=== PATIENT | female | born 1990 | race Caucasian/White ===

== ENCOUNTER → 2020-03-28 14:21 | Outpatient (BNVA) | payer OTHER, SELFPAY | PROVIDERS: PCP Internal Medicine; Visit Provider Advanced Practice Midwife | DX: Z76.89 Persons encountering health services in other specified circumstances (principal) ==

== ENCOUNTER → 2020-04-30 10:12 | Outpatient (BNVA) | payer OTHER, SELFPAY | PROVIDERS: Visit Provider Advanced Practice Midwife | DX: O99.322 Drug use complicating pregnancy, second trimester (principal); F11.20 Opioid dependence, uncomplicated; F12.90 Cannabis use, unspecified, uncomplicated; O99.332 Smoking (tobacco) complicating pregnancy, second trimester; F17.210 Nicotine dependence, cigarettes, uncomplicated; O99.342 Other mental disorders complicating pregnancy, second trimester; F41.8 Other specified anxiety disorders; F43.10 Post-traumatic stress disorder, unspecified; Z3A.26 26 weeks gestation of pregnancy; Z79.899 Other long term (current) drug therapy; Z23 Encounter for immunization | CPT/HCPCS: 90686 ==

== ENCOUNTER → 2020-06-05 15:55 | Outpatient (BNVA) | payer OTHER, SELFPAY | PROVIDERS: Visit Provider Advanced Practice Midwife | DX: O99.320 Drug use complicating pregnancy, unspecified trimester (principal); O26.899 Other specified pregnancy related conditions, unspecified trimester; F17.210 Nicotine dependence, cigarettes, uncomplicated; F11.20 Opioid dependence, uncomplicated; Z79.899 Other long term (current) drug therapy | CPT/HCPCS: 81003; 90471; 90715; 99212 ==

== ENCOUNTER 2020-06-20 14:07 | Outpatient (REF) | payer OTHER, SELFPAY ==
--- NOTE | 2020-06-20 14:13 | US_ITS ---
EXAMINATION: US OBSTETRICAL FOLLOW UP WITH BIOPHYSICAL PROFILE CLINICAL INFORMATION: Opioid dependence. COMPARISON: 03/02/2020 TECHNIQUE: Real time transabdominal imaging with color and M-mode Doppler. POSITION: Cephalic PLACENTA: Anterior, grade 2 AMNIOTIC FLUID INDEX: 16.99. cm MEASUREMENTS: biometric measurements are as follows: Biparietal Diameter: 8.46 cm (34 weeks and 1 day) Occipital Frontal Diameter: 12.12 cm. Head Circumference: 32.83 cm (37 weeks and 3 days) Abdominal Circumference: 32.09 cm (36 weeks and 1 day) Femur Length: 6.76 cm (34 weeks and 6 days) The standard deviation for the above measurements is +/- 3 weeks. ESTIMATED WEIGHT: The EFW is 2682 grams/5 lbs 15 oz. This is at the 84 percentile. anatomy: There is visualization of both kidneys, bladder, stomach and a 4-chamber heart. BIOPHYSICAL PROFILE: Biophysical profile is performed over 30 minutes with assessment of breathing, gross body movement, tone, and qualitative amniotic fluid volume. Each matrix is scored 0 or 2, depending if the metric is present. Maximum total score possible is 8. Motion: 2 Tone: 2 Breathin Amniotic Fluid: 2 Total score: 8 HR: 137 bpm US/US OB follow up IMPRESSION: There is a single live intrauterine fetus with an ultrasound gestational age of 35 weeks and 5 days. By LMP, the clinical gestational age is 34 weeks and 0 days. Based on today's ultrasound the ALPHONSE is 07/20/2020. BPP Score: 8 out of 8
== END 2020-06-20 14:08 | disposition home or self-care (01) ==
LOC: HO.US 14:07
PROVIDERS: Visit Provider Advanced Practice Midwife
DX: O99.323 Drug use complicating pregnancy, third trimester (principal); F11.20 Opioid dependence, uncomplicated; Z3A.35 35 weeks gestation of pregnancy; O99.333 Smoking (tobacco) complicating pregnancy, third trimester
CPT/HCPCS: 76816

== ENCOUNTER → 2020-06-22 15:41 | Outpatient (BNVA) | payer OTHER, SELFPAY | PROVIDERS: Visit Provider Advanced Practice Midwife | DX: O09.899 Supervision of other high risk pregnancies, unspecified trimester (principal) | CPT/HCPCS: 81003; 99212 ==

== ENCOUNTER 2021-03-09 16:49 | Emergency (ER) | payer OTHER, SELFPAY ==
--- NOTE | 2021-03-09 | ECG_ITS ---
Test Reason : SOB Blood Pressure : / mmHG Vent. Rate : 128 BPM Atrial Rate : 128 BPM P-R Int : 104 ms QRS Dur : 084 ms QT Int : 408 ms P-R-T Axes : 014 017 050 degrees QTc Int : 595 ms Sinus tachycardia with short VT Nonspecific T wave abnormality Abnormal ECG No previous ECGs available Referred By: Generic ED Physician Electronically Signed By:LEIGHTON HUGHES
[2021-03-09 17:05] VITALS: BP 174/98; PULSE 143; RESP 18; TEMP 37.2; O2SAT 98; BMI 31.7
[2021-03-09 17:44] LABS: COVID-19 Test Negative (Negative); IDNOW Serial# 9DD0AD1C
--- NOTE | 2021-03-09 19:20 | PC.NURSE ---
THis RN spoke with patient who was nodding off while in WR. Pt was arousable to voice and denies drug use. Skin pwd.
== END 2021-03-09 19:40 | disposition left against medical advice (07) ==
PROVIDERS: Emergency Provider Emergency Medicine
DX: R06.02 Shortness of breath (principal); Z20.822 Contact with and (suspected) exposure to COVID-19
CPT/HCPCS: 36415; 87635; 93005; 99282; 99283

== ENCOUNTER 2021-12-06 15:51 | Emergency (ER) | payer OTHER, SELFPAY ==
[2021-12-06 15:56] VITALS: BP 152/83; PULSE 68; RESP 15; TEMP 36.6; O2SAT 99; BMI 26.6
[2021-12-06 16:50] LABS: MANUAL DIFF FLAG NO
[2021-12-06 16:53] LABS: Appearance Urine CLEAR; Color Urine YELLOW; Glucose Urine UA NEG (NEG); Leukocyte Esterase Urine 2+ (NEG); Nitrite Urine POS (NEG); Specific Gravity - Urine 1.025 (1.005-1.025); UACC Culture Trigger YES; UPreg QC Valid YES; Urine Blood NEG (NEG); Urine Ketones 5 MG/DL (NEG); Urine Pregnancy NEGATIVE (NEGATIVE); Urine Protein NEG (NEG-TRACE)
[2021-12-06 17:01] LABS: Basophils Percent Auto 0.4 % (0-2); Eosinophils Absolute Auto 0.1 X10*3/uL (0.0-0.4); Eosinophils Percent Auto 1.9 % (0-4); Hematocrit 43.8 % (37.0-47.0); Hemoglobin 14.1 g/dl (12.0-16.0); Imm Gran Abs Auto 0.01 X10*3/uL (0.00-0.03); Imm Gran Pct Auto 0.1 % (0.0-0.4); Lymphocytes Absolute Auto 2.5 X10*3/uL (1.2-4.9); Lymphocytes Percent Auto 36.6 % (20-40); Mean Corpuscular HGB Conc 32.2 g/dl (31.0-35.0); Mean Corpuscular Hemoglobin 29.4 pg (27.0-33.0); Mean Corpuscular Volume 91.4 fL (80.0-98.0); Monocytes Absolute Auto 0.5 X10*3/uL (0.1-1.2); Monocytes Percent Auto 6.6 % (2-11); Neutrophils Absolute Auto 3.7 x10*3/uL (2.0-8.3); Neutrophils Percent Auto 54.4 % (45-73); Platelet Count 227 X10*3/uL (160-400); Red Blood Count 4.79 X10*6/uL (4.20-5.50); Red Cell Distribution Width 12.5 % (11.0-16.0); White Blood Count 6.9 X10*3/uL (4.8-10.8)
[2021-12-06 17:06] LABS: Anion Gap 10 (12-20); Blood Urea Nitrogen 10 mg/dL (9-16); Calcium 9.7 mg/dL (8.4-10.2); Carbon Dioxide 31 mmol/L (22-29); Chloride 103 mmol/L (96-108); Creatinine Clr Calc Pharmacy 88.1; Estimated Glomerular Filt Rate > 60; Glucose Random 110 mg/dL (60-115); Potassium 5.2 mmol/L (3.3-5.1); Sodium 139 mmol/L (135-145)
[2021-12-06 17:22] LABS: Bacteria Urine 3+ /LPF; Squamous Epithelial Cell Urine 1+ /LPF
--- NOTE | 2021-12-06 17:22 | ED_ITS ---
HPI - Female Genitourinary General Chief complaint: Urogenital-Female Stated complaint: UTI symptoms/back pain Time Seen by Provider: 12/06/21 17:36 Source: patient Mode of arrival: ambulatory Limitations: no limitations History of Present Illness HPI Narrative: 31-year-old female presents with 5 days of urinary symptoms, frequency, urgency, with lower back pain. She does not report any fevers or chills, or any hematuria. Does report getting recurrent UTIs, has not had 1 in several months. She reports no risk of sexually transmitted infections at this time. Does not report any vaginal discharge or pain. MD elicited complaint: UTI Pertinent past history: recurrent UTIs Onset (ago): day(s) (5) Location of symptoms: urethra Severity: moderate Female Urogenital Radiation: Non-Radiating Severity scale (1-10): 6 Quality of pain: burning Consistency: intermittent Vaginal discharge: none Vaginal bleeding: none Urinary symptoms: Dysuria, Urgency, Frequency and Flank Pain Exacerbating factors: urination Relieving factors: none Associated symptoms: denies other symptoms Treatment prior to arrival: none Sexual activity: No Patient : No Related Data Home Medications Medication Instructions Recorded Confirmed clonazepam 1 mg tablet 1 mg PO TID PRN 03/29/20 methadone 10 mg/mL oral concentrate 10 mg PO DAILY 03/29/20 Previous Rx's Medication Instructions Recorded clindamycin HCl 150 mg capsule 450 mg PO TID 7 days #63 caps 01/14/21 ondansetron 4 mg disintegrating 4 mg PO Q6H PRN nausea and 01/14/21 tablet vomiting #20 tabs Allergies Allergy/AdvReac Type Severity Reaction Status Date / Time amoxicillin [Amoxicillin] Allergy Mild NAUSEA & Verified 06/22/20 15:55 VOMITING, anaphylaxis ibuprofen [From Motrin] Allergy Mild SHORTNESS Verified 06/22/20 15:55 OF BREATH naproxen [From NAPROSYN] Allergy Unknown HIVES, Verified 06/22/20 15:55 shortness of breath penicillin V Allergy Unknown anaphylaxis Verified 06/22/20 15:55 Penicillins [PCN] Allergy Unknown SHORTNESS Verified 06/22/20 15:55 OF BREATH/N/V tramadol [TRAMADOL] Allergy Unknown SHORTNESS Verified 06/22/20 15:55 OF BREATH Review of Systems Review of Systems: Constitutional: No Fever, No Chills ENT/Mouth: No Ear Pain, No Hoarseness, No sore throat Eyes: No Eye Pain, No Swelling, No Redness, No Foreign Body Cardiovascular: No Chest Pain, No SOB Respiratory: No Cough, No Dyspnea Gastrointestinal: No Nausea, No Vomiting, No Diarrhea, No abdominal Pain Genitourinary: Positive Dysuria, No Hematuria Musculoskeletal: No joint pain, No Myalgias, No Joint Swelling Skin: No Skin lacerations, No rash Neuro: No Weakness, No Numbness, No Paresthesias, No Loss of Consciousness, No Dizziness, No Headache Psych: No Anxiety/Panic, No Depression Heme/Lymph: no easy bruising, no Lymphadenopathy Endocrine: No Polyuria, No Polydipsia Yes all other systems are reviewed and are negative [facility] Past Medical History Attestation statement: The following information was validated with the patient. Source: old records reviewed Medical History Depression PTSD (post-traumatic stress disorder) Surgical History No history of previous surgery Family History Family History Maternal Grandfather HTN (hypertension) Mother Anxiety Father Anxiety Social History Social History Alcohol intake: never Substance Use Type: Marijuana Advance Directives: No Advance Directives Information Provided: No Patient : No Sexual orientation: Straight/Heterosexual Gender identity: Female Physical Exam Vital Signs: Vital Signs: Last Vital Signs Temp 98 F 12/06/21 15:56 Pulse 68 12/06/21 15:56 Resp 15 12/06/21 15:56 BP 152/83 H 12/06/21 15:56 Pulse Ox 99 12/06/21 15:56 O2 Del Method 12/06/21 15:56 BMI result Body Mass Index 26.6 Appearance: Alert. Oriented X3. No acute distress. Eyes: Pupils equal, round and reactive to light. ENT: Pharynx normal. Neck: Normal inspection. Neck supple. CVS: Normal heart rate and rhythm. Pulses normal. Respiratory: No respiratory distress. Breath sounds normal. Abdomen: Soft and nontender. No CVA tenderness. Skin: Skin warm and dry. Normal skin color. Normal skin turgor. Extremities: No lower extremity edema. Gait well-balanced well coordinated. Neuro: No motor deficit. No sensory deficit. Cranial nerves 2-12 intact Course Course Course Narrative: 31-year-old female presents with 5 days of urinary symptoms including dysuria, urgency, and flank pain. Patient denies risk for sexually transmitted infections at this time, denies vaginal pain and discharge. Denied fevers, chills, nausea and vomiting or abdominal distention. She does get recurrent UTIs has not had 1 in a few months. Urinalysis completed with labs while patient was in the emergency department waiting room. Labs unremarkable, potassium is 5.2 however patient is able to eat and drink and I feel that this will really resolved with p.o. fluids. Urinalysis indicates UTI. Will treat with Macrobid. Physical exam is unremarkable. Patient is afebrile, appears nontoxic, even unlabored respirations. I did discuss plan of care with patient, she agrees with Macrobid and Pyridium. As well as increased p.o. intake. Patient verbalized understanding of and agrees to plan of care to discharge home. Verbalized understanding of signs and symptoms indicating need for emergent intervention MDM - Female Genitourinary Differential Diagnosis Differential diagnosis: Likely urinary tract infection and cystitis Medical Records Attestation: I reviewed the patient's medical records. Lab Data Attestation: I reviewed the patient's lab results. Result diagrams: 12/06/21 16:45 12/06/21 16:45 Labs: Lab Results 12/06/21 12/06/21 12/06/21 Range/Units 16:45 16:45 16:45 WBC 6.9 (4.8-10.8) X10*3/uL RBC 4.79 (4.20-5.50) X10*6/uL Hgb 14.1 (12.0-16.0) g/dl Hct 43.8 (37.0-47.0) % MCV 91.4 (80.0-98.0) fL MCH 29.4 (27.0-33.0) pg MCHC 32.2 (31.0-35.0) g/dl RDW 12.5 (11.0-16.0) % Plt Count 227 (160-400) X10*3/uL MPV 10.0 (9.4-12.3) fL Immature Gran % (Auto) 0.1 (0.0-0.4) % Neut % (Auto) 54.4 (45-73) % Lymph % (Auto) 36.6 (20-40) % [place] % (Auto) 6.6 (2-11) % Eos % (Auto) 1.9 (0-4) % Baso % (Auto) 0.4 (0-2) % Lymph # (Auto) 2.5 (1.2-4.9) X10*3/uL [place] # (Auto) 0.5 (0.1-1.2) X10*3/uL Eos # (Auto) 0.1 (0.0-0.4) X10*3/uL Baso # (Auto) 0.0 (0.0-0.2) X10*3/uL Abs Immat Gran (auto) 0.01 (0.00-0.03) X10*3/uL Absolute Neuts (auto) 3.7 (2.0-8.3) x10*3/uL Absolute Nucleated RBC 0.000 (0.0-0.012) X10*3/uL Nucleated RBC % (auto) 0.0 (0.0-0.2) /100WBC Sodium 139 (135-145) mmol/L Potassium 5.2 H (3.3-5.1) mmol/L Chloride 103 (96-108) mmol/L Carbon Dioxide 31 H (22-29) mmol/L Anion Gap 10 L (12-20) BUN 10 (9-16) mg/dL Creatinine 0.89 (0.5-1.4) mg/dL Estim Creat Clear Calc 88.1 Estimated GFR > 60 Random Glucose 110 (60-115) mg/dL Calcium 9.7 (8.4-10.2) mg/dL Urine Color YELLOW Urine Appearance CLEAR Urine pH 6.0 (5.0-8.0) Ur Specific [place] 1.025 (1.005-1.025) Urine Protein NEG (NEG-TRACE) MG/DL Urine Glucose (UA) NEG (NEG) MG/DL Urine Ketones 5 (NEG) MG/DL Urine Blood NEG (NEG) Urine Nitrite POS H (NEG) Ur Leukocyte Esterase 2+ H (NEG) Urine RBC 1-4 (0) /HPF Urine WBC 15-29 H (0-4) /HPF Ur Squamous Epith Cells 1+ /LPF Urine Bacteria 3+ /LPF Urine Test (NEGATIVE) 12/06/21 Range/Units 16:45 WBC (4.8-10.8) X10*3/uL RBC (4.20-5.50) X10*6/uL Hgb (12.0-16.0) g/dl Hct (37.0-47.0) % MCV (80.0-98.0) fL MCH (27.0-33.0) pg MCHC (31.0-35.0) g/dl RDW (11.0-16.0) % Plt Count (160-400) X10*3/uL MPV (9.4-12.3) fL Immature Gran % (Auto) (0.0-0.4) % Neut % (Auto) (45-73) % Lymph % (Auto) (20-40) % [place] % (Auto) (2-11) % Eos % (Auto) (0-4) % Baso % (Auto) (0-2) % Lymph # (Auto) (1.2-4.9) X10*3/uL [place] # (Auto) (0.1-1.2) X10*3/uL Eos # (Auto) (0.0-0.4) X10*3/uL Baso # (Auto) (0.0-0.2) X10*3/uL Abs Immat Gran (auto) (0.00-0.03) X10*3/uL Absolute Neuts (auto) (2.0-8.3) x10*3/uL Absolute Nucleated RBC (0.0-0.012) X10*3/uL Nucleated RBC % (auto) (0.0-0.2) /100WBC Sodium (135-145) mmol/L Potassium (3.3-5.1) mmol/L Chloride (96-108) mmol/L Carbon Dioxide (22-29) mmol/L Anion Gap (12-20) BUN (9-16) mg/dL Creatinine (0.5-1.4) mg/dL Estim Creat Clear Calc Estimated GFR Random Glucose (60-115) mg/dL Calcium (8.4-10.2) mg/dL Urine Color Urine Appearance Urine pH (5.0-8.0) Ur Specific [place] (1.005-1.025) Urine Protein (NEG-TRACE) MG/DL Urine Glucose (UA) (NEG) MG/DL Urine Ketones (NEG) MG/DL Urine Blood (NEG) Urine Nitrite (NEG) Ur Leukocyte Esterase (NEG) Urine RBC (0) /HPF Urine WBC (0-4) /HPF Ur Squamous Epith Cells /LPF Urine Bacteria /LPF Urine Test NEGATIVE (NEGATIVE) Discharge Plan Discharge Clinical Impression: Urinary tract infection, Cystitis Patient Disposition: Home, Self-Care Instructions: Urinary Tract Infection in Women (ED) Additional Instructions: You were evaluated for urinary symptoms. Urinalysis is positive for UTI. Please take Macrobid 100 mg every 12 hours for the next 7 days. Use Pyridium every 8 hours as needed for bladder spasms and urinary symptoms. This medication will turn your urine bright orange. This is a normal side effect of this medication. Drink plenty of fluids. Thank you for choosing this emergency department for evaluation. Please follow-up with primary care physician as needed. Return to the emergency department for any new, concerning, or worsening symptoms. Prescriptions: No Action clindamycin HCl 150 mg capsule 450 mg PO TID 7 Days Qty: 63 0RF ondansetron 4 mg tablet,disintegrating 4 mg PO Q6H PRN (Reason: nausea and vomiting) Qty: 20 0RF clonazepam 1 mg tablet 1 mg PO TID PRN methadone 10 mg/mL concentrate 10 mg PO DAILY Interventions: ED Discharge Assessment Last Done: 12/06/21 17:56 Discharge Date/Time: 12/06/21 17:57
[2021-12-06] MEDS: Nitrofurantoin Monohyd/M-Cryst 100 MG CAPSULE PO (17:36)
[2021-12-06] MEDS: Phenazopyridine HCL 200 MG TABLET PO (17:36)
== END 2021-12-06 17:57 | disposition home or self-care (01) ==
LOC: HO.ED 17:47
PROVIDERS: Emergency Provider Emergency Medicine Emergency Medical Services
DX: N39.0 Urinary tract infection, site not specified (principal); M54.50 Low back pain, unspecified; R30.0 Dysuria; R35.0 Frequency of micturition
CPT/HCPCS: 36415; 80048; 81001; 81025; 85025; 87086; 87088; 87186; 99283

== ENCOUNTER 2022-09-30 09:32 | Emergency (ER) | payer OTHER, SELFPAY ==
--- NOTE | 2022-09-30 09:55 | ED.DENTAL ---
HPI - Dental/Oral General Chief complaint: Dental/Oral Stated complaint: Dental Abscess Time Seen by Provider: 09/30/22 09:51 Source: patient Mode of arrival: ambulatory Limitations: no limitations History of Present Illness HPI Narrative: 31yo female presenting for evaluation of a dental abscess that developed 2 days ago. Patient stated she began to develop tooth pain 4-5 days ago and an abscess formed 2 days ago which was associated with significantly increased pain and facial swelling. Patient stated that the abscess popped last night while she was laying down and she spit out a collection of blood and pus then rinsed it with water and mouthwash. Patient stated she does not recall the last time she saw a dentist but has an appointment in 1 month. She denied fever, difficulty breathing or swallowing liquids or solids. MD Complaint: tooth pain Location: Tooth # (3/4) Onset (ago): day(s) (5) Duration: constant Relieving factors: nothing Exacerbating factors: chewing Context: history of dental caries and poor dental care Associated symptoms: other (cheek swelling) Treatment prior to arrival: none Related Data Home Medications Medication Instructions Recorded Confirmed clonazepam 1 mg tablet 1 mg PO TID PRN 03/29/20 methadone 10 mg/mL oral concentrate 10 mg PO DAILY 03/29/20 Previous Rx's Medication Instructions Recorded clindamycin HCl 150 mg capsule 450 mg PO TID 7 days #63 caps 01/14/21 ondansetron 4 mg disintegrating 4 mg PO Q6H PRN nausea and 01/14/21 tablet vomiting #20 tabs nitrofurantoin 100 mg PO Q12H 7 days #14 caps 12/06/21 monohydrate/macrocrystals 100 mg capsule (Macrobid) phenazopyridine 200 mg tablet 200 mg PO TID PRN pain 6 doses #6 12/06/21 (Pyridium) tabs clindamycin HCl 300 mg capsule 300 mg PO Q6H 7 days #28 caps 09/30/22 Allergies Allergy/AdvReac Type Severity Reaction Status Date / Time amoxicillin [Amoxicillin] Allergy Mild NAUSEA & Verified 06/22/20 15:55 VOMITING, anaphylaxis ibuprofen [From Motrin] Allergy Mild SHORTNESS Verified 06/22/20 15:55 OF BREATH naproxen [From NAPROSYN] Allergy Unknown HIVES, Verified 06/22/20 15:55 shortness of breath penicillin V Allergy Unknown anaphylaxis Verified 06/22/20 15:55 Penicillins [PCN] Allergy Unknown SHORTNESS Verified 06/22/20 15:55 OF BREATH/N/V tramadol [TRAMADOL] Allergy Unknown SHORTNESS Verified 06/22/20 15:55 OF BREATH Review of Systems Review of Systems: Yes all other systems are reviewed and are negative [facility] Past Medical History Medical History Depression PTSD (post-traumatic stress disorder) Surgical History No history of previous surgery Family History Family History Maternal Grandfather HTN (hypertension) Mother Anxiety Father Anxiety Social History Social History Alcohol intake: never Substance Use Type: Marijuana Advance Directives: No Sexual orientation: Straight/Heterosexual Gender identity: Female Physical Exam Vital Signs: Vital Signs: Last Vital Signs Temp 98.1 F 09/30/22 10:15 Pulse 84 09/30/22 10:15 Resp 18 09/30/22 10:15 BP 123/82 09/30/22 10:15 Pulse Ox 96 09/30/22 10:15 O2 Del Method Room Air 09/30/22 10:15 BMI result Body Mass Index 30.9 Appearance: Alert. Oriented X3. No acute distress. HEENT: moderate swelling noted of patient's right cheek. Poor dentition throughout with gingival swelling in the right upper oral cavity. Significant tenderness on the buccal side of the gums at tooth #4 location, no fluctuance noted. Mild swelling of left tonsil. no trismus. mild preauricular tenderness. CVS: Normal heart rate and rhythm. Pulses normal. Respiratory: No respiratory distress. Skin: Skin warm and dry. Normal skin color. Normal skin turgor. No rashes. Neuro: Oriented X 3. No motor deficit. No sensory deficit. Medical Decision Making Medical Decision Making MDM Narrative: Patient is a 31yo female presenting for evaluation of dental pain that started 5 days ago, developed into an abscess 2 days ago, and burst spontaneously yesterday. Patient's physical exam showed moderate swelling of the left cheek, poor dentition throughout with gingival swelling in the right upper oral cavity and significant tenderness on the buccal side of the gums at tooth #4 location, with no fluctuance as well as mild swelling of the left tonsil, no trismus, and mild preauricular tenderness. Patient was prescribed clindamycin. She was instructed to take her medications as directed. She was instructed to follow up with her primary care doctor and dentist and to call 911 or return if she develops new or worsening symptoms. Differential Diagnosis Differential Diagnoses: The differential diagnosis associated with the presentation includes dental abscess, dental carries, sialadenitis, peritonsillar abscess, doubt osteomyelitis Tests considered The following testing was considered but not selected: CT scan considered but not indicated today, no trismus Prescription Management I considered prescription management with: Pain Medication and Antibiotic Chronic Conditions Patient?s care impacted by: Other (poor dentition) Critical Care Time Critical Care Time Critical Care Time: No Discharge Plan Discharge Clinical Impression: Dental abscess Patient Disposition: Home, Self-Care Instructions: Dental Abscess (ED) Additional Instructions: You were seen today for evaluation of a dental abscess. Your exam showed a small pustule that you did not want to drain at this time. We have prescribed Clindamycin. It is important that you take the antibiotics as instructed. You can take Tylenol as needed for pain management. Follow up with your primary care and your dentist. Return to the ER if you develop new or worsening symptoms. Prescriptions: New clindamycin HCl 300 mg capsule 300 mg PO Q6H 7 Days Qty: 28 0RF No Action nitrofurantoin monohyd/m-cryst [Macrobid] 100 mg capsule 100 mg PO Q12H 7 Days Qty: 14 0RF Rx Instructions: must administer with a meal/food phenazopyridine [Pyridium] 200 mg tablet 200 mg PO TID PRN (Reason: pain) Qty: 6 0RF clindamycin HCl 150 mg capsule 450 mg PO TID 7 Days Qty: 63 0RF ondansetron 4 mg tablet,disintegrating 4 mg PO Q6H PRN (Reason: nausea and vomiting) Qty: 20 0RF clonazepam 1 mg tablet 1 mg PO TID PRN methadone 10 mg/mL concentrate 10 mg PO DAILY Interventions: ED Discharge Assessment Last Done: 09/30/22 10:43 Discharge Date/Time: 09/30/22 10:44
--- OUTSIDE RECORDS SUMMARY | 2022-09-30 10:00 | XMS_ITS | Continuity of Care Document ---
Author Name Unknown Organization [facility] Address [address] [place] [id number]- Care Team Providers Care Truck Sales Manager Name Role Phone Thania Mckenzie Primary Care Physician Encounter [facility] [place] Date(s): 07/26/20 - 08/25/[address] [address]- Allergies, Adverse Reactions, Alerts Substance Reaction Severity Status ibuprofen Active amoxicillin Active penicillin Active traMADol Active Medications acetaminophen 325 mg oral tablet 650 mg, By Mouth, Every 4 hours, PRN, (1-3), may give 325mg per patient preference and re-dose [id number] within 4 hours, if needed. Patient should only receive a total of 650mg of Acetaminophen every 4 hours., # 50 tablet, Refills 0, Tot. Refills 0... Start Date: 07/30/20 Status: Ordered Clonazepam By Mouth, 3 times a day, 0 Refills, Maintenance, 07/06/20 11:29:00 EST, Partial fill upon patient request if the prescription is for a schedule II opioid drug. Start Date: 07/06/20 Status: Ordered docusate sodium 100 mg oral capsule 1 capsule = 100 mg, By Mouth, 2 times a day, PRN Constipation, # 100 capsule, 0 Refills, Maintenance, 07/30/20 6:52:00 EST, Capsule, [id number], Partial fill upon patient request if the prescription is for a schedule II opioid drug., 163, cm,... Start Date: 07/30/20 Status: Ordered Methadone By Mouth, 0 Refills, Maintenance, 07/06/20 11:29:00 EST, Partial fill upon patient request if the prescription is for a schedule II opioid drug. Start Date: 07/06/20 Status: Ordered Prenatabs Rx oral tablet 1 tablet = 1 mg, By Mouth, Daily, # 30 tablet, 0 Refills, Maintenance, 07/30/20 6:52:00 EST, Tablet, [facility]/pharmacy #[id number], Partial fill upon patient request if the prescription is for a schedule II opioid drug., 1 tablet By Mouth Daily, 163, cm, ... Start Date: 07/30/20 Status: Ordered Problem List Condition Effective Dates Status Health Status Inform ant Allergy to penicillin(Confirmed) Active Anxiety(Confirmed) Active Cigarette smoker(Confirmed) Active Marijuana use(Confirmed) Active Methadone use(Confirmed) Active PTSD (post-traumatic stress disorder)(Confirmed) Active
--- OUTSIDE RECORDS SUMMARY | 2022-09-30 10:00 | XMS_ITS | Continuity of Care Document ---
Author Name Unknown Organization [facility] Address [address] [place] [id number]- Care Team Providers Care Cut And Cover Line Worker Name Role Phone Thania Mckenzie Primary Care Physician Encounter [facility] [place] Date(s): 09/06/20 - 10/06/[address] [address]- Attending Physician: Rakel Singh Admitting Physician: Rakel Singh Referring Physician: AdmtrRakel Allergies, Adverse Reactions, Alerts Substance Reaction Severity Status ibuprofen Active amoxicillin Active penicillin Active traMADol Active Medications acetaminophen 325 mg oral tablet 650 mg, By Mouth, Every 4 hours, PRN, (1-3), may give 325mg per patient preference and re-dose [id number] within 4 hours, if needed. Patient should [...] 0 Refills, Maintenance, 07/30/20 6:52:00 EST, Tablet, [facility]/pharmacy #[id number], Partial fill upon patient request if the prescription is for a schedule II opioid drug., 1 tablet By Mouth Daily, 163, cm, ... Start Date: 07/30/20 Status: Ordered Problem List Condition Effective Dates Status Health Status Inform ant Allergy to penicillin(Confirmed) Active Anxiety(Confirmed) Active Cigarette smoker(Confirmed) Active Marijuana use(Confirmed) Active Methadone use(Confirmed) Active exam(Confirmed) Active PTSD (post-traumatic stress disorder)(Confirmed) Active
--- OUTSIDE RECORDS SUMMARY | 2022-09-30 10:00 | XMS_ITS | Continuity of Care Document ---
Author Name Unknown Organization [facility] Address [address] [place] [id number]- Care Team Providers Care Tool Turret Lathe Set Up Operator Name Role Phone Thania Mckenzie Primary Care Physician Encounter [facility] [place] Date(s): 07/30/20 - 10/06/[address] [address]- Attending Physician: Not on Staff, Attending MD Referring Physician: Thania Mckenzie Allergies, Adverse Reactions, Alerts Substance Reaction Severity Status ibuprofen Active amoxicillin Active penicillin Active traMADol Active Medications acetaminophen 325 mg oral tablet 650 mg, By Mouth, Every 4 hours, PRN, (1-3), may give 325mg per patient preference and re-dose [id number] within 4 hours, if needed. Patient should [...] 0 Refills, Maintenance, 07/30/20 6:52:00 EST, Tablet, [facility]/pharmacy #[id number], Partial fill upon patient request if [...]
--- OUTSIDE RECORDS SUMMARY | 2022-09-30 10:01 | XMS_ITS | Continuity of Care Document ---
Author Name Unknown Organization [facility] ter Address [address] [place] [address]- Care Team Providers Care Design Analyst Name Role Phone Thania Mckenzie Primary Care Physician [place] [facility] [place] - 07/[place]/[address] [address]- Discharge Disposition: A-D/C Walkout Attending Physician: Gabriel Nguyễn MD Admitting Physician: Gabriel Nguyễn MD Referring Physician: Gabriel Nguyễn MD Allergies, Adverse Reactions, Alerts Substance Reaction Severity Status ibuprofen Active amoxicillin Active penicillin Active traMADol Active Medications Clonazepam By Mouth, 3 times a day, 0 Refills, Maintenance, 07/06/20 11:29:00 EST, Partial fill upon patient request if the prescription is for a schedule II opioid drug. Start Date: 07/06/20 Status: Ordered Methadone By Mouth, 0 Refills, Maintenance, 07/06/20 11:29:00 EST, Partial fill upon patient request if the prescription is for a schedule II opioid drug. Start Date: 07/06/20 Status: Ordered Prenatabs Rx oral tablet 1 tablet, By Mouth, Daily, # 30 tablet, 0 Refills, Maintenance, 07/21/20 2:42:00 EST, Tablet, Partial fill upon patient request if the prescription is for a schedule II opioid drug. Start Date: 07/21/20 Status: Ordered Problem List Condition Effective Dates Status Health Status Inform ant Allergy to penicillin(Confirmed) Active Anxiety(Confirmed) Active Cigarette smoker(Confirmed) Active Marijuana use(Confirmed) Active Methadone use(Confirmed) Active PTSD (post-traumatic stress disorder)(Confirmed) Active
--- OUTSIDE RECORDS SUMMARY | 2022-09-30 10:01 | XMS_ITS | Continuity of Care Document ---
Author Name Unknown Organization [facility] ter Address [address] [place] [id number]- Care Team Providers Care Rag Collector Name Role Phone Thania Mckenzie Primary Care Physician [phone] [place] [facility] [place]20 - 07/31/[address] [address] Discharge Disposition: A-D/C Home Attending Physician: Kirk Perez MD Admitting Physician: Kirk Perez MD Referring Physician: Kirk Perez MD Allergies, Adverse Reactions, Alerts Substance Reaction Severity Status ibuprofen Active amoxicillin Active penicillin Active traMADol Active Medications acetaminophen 325 mg oral tablet 650 mg, By Mouth, Every 4 hours, PRN, (1-3), may give 325mg per patient preference and re-dose [id number] within 4 hours, if needed. Patient should only receive a total of 650mg of Acetaminophen every 4 hours., # 50 tablet, Refills 0, Tot. Refills 0... Start Date: 07/30/20 Status: Ordered Acetaminophen Tablet 650 mg, Tablet, By Mouth, Every 4 hours, PRN for Pain , Mild, (1-3), may give 325mg per patient preference and re-dose with 325mg within 4 hours, if needed. Patient should only receive a total of 650mg of Acetaminophen every 4 hours., Routine, 07/28... Start Date: 07/28/20 Stop Date: 07/31/20 Status: Discontinued Clonazepam By Mouth, 3 times a day, [...] drug. Start Date: 07/06/20 Status: Ordered Methadone Liquid 120 mg, Solution, By Mouth, 07/31/20 9:00:00 EST Start Date: 07/31/20 Stop Date: 07/31/20 Status: Completed Prenatabs Rx oral tablet 1 tablet = 1 mg, By Mouth, Daily, # 30 tablet, 0 Refills, Maintenance, 07/30/20 6:52:00 EST, Tablet, [id number], Partial fill upon patient request if the prescription is for a schedule II opioid drug., 1 tablet By Mouth Daily, 163, cm, ... Start Date: 07/30/20 Status: Ordered Problem List Condition Effective Dates Status Health Status Inform ant Allergy to penicillin(Confirmed) Active Anxiety(Confirmed) Active Cigarette smoker(Confirmed) Active Marijuana use(Confirmed) Active Methadone use(Confirmed) Active PTSD (post-traumatic stress disorder)(Confirmed) Active Vital Signs Most recent to oldest [Reference Range]: 1 2 3 Height 163 cm (07/31/20 9:15 AM) 163 cm (07/31/20 12:00 AM) 163 cm (07/30/20 4:32 PM) Weight 110 kg (07/27/20 4:10 PM) Oxygen Saturation [94-100 %] 99 % (07/31/20 12:00 AM) 98 % (07/30/20 12:03 AM) 96 % (07/29/20 4:27 PM) Pulse Rate [55-90 bpm] 92 bpm *H* (07/31/20 9:15 AM) 86 bpm (07/31/20 12:00 AM) 71 bpm (07/30/20 4:32 PM) Body Mass Index [18.5-24.99] 41.4 *>HHI* (07/27/20 4:10 PM) Blood Pressure [90-138/55-84 mm Hg] 121/74mm Hg (07/31/20 9:15 AM) 121/68mm Hg (07/31/20 12:00 AM) 108/57mm Hg (07/30/20 4:32 PM) Respiratory Rate [16-30 br/min] 18 br/min (07/31/20 10:11 AM) 18 br/min (07/31/20 10:07 AM) 18 br/min (07/31/20 9:15 AM) Temperature [96.8-100.4 DegF] 97.4 DegF (07/31/20 9:15 AM) 98.3 DegF (07/31/20 12:00 AM) 98.0 DegF (07/30/20 4:32 PM) Mode of Delivery (Oxygen) Room air (07/31/20 12:00 AM) Room air (07/30/20 12:03 AM) Room air (07/29/20 4:27 PM) Blood pressure sites Arm, right (07/30/20 4:32 PM) Arm, right (07/30/20 7:50 AM) Arm, left (07/28/20 1:34 AM) Temperature Route Oral (07/31/20 9:15 AM) Oral (07/31/20 12:00 AM) Oral (07/30/20 4:32 PM) Dry Weight 110 kg (07/27/20 4:10 PM) Weight Obtained Via Patient/family state d (07/27/20 4:10 PM) Dry Weight Obtained Via Patient/family s tated (07/27/20 4:10 PM)
--- OUTSIDE RECORDS SUMMARY | 2022-09-30 10:01 | XMS_ITS | Continuity of Care Document ---
Author Name Unknown Organization [facility] ter Address [address] [place] [address]- Care Team Providers Care User Experience Team Lead Name Role Phone Thania Mckenzie Primary Care Physician [phone] Encounter [facility] [place] Date(s): 07/21/20 - 07/21/[address] [address]- Discharge Disposition: A-D/C Home Attending Physician: Gabriel Nguyễn MD Admitting Physician: [...] recent to oldest [Reference Range]: 1 2 Weight 107.3 kg (07/21/20 2:23 AM) Oxygen Saturation [94-100 %] 99 % (07/21/20 2:38 AM) 98 % (07/21/20 2:23 AM) Blood Pressure [90-138/55-84 mm Hg] 112/ 74mm Hg (07/21/20 2:38 AM) Respiratory Rate [16-30 br/min] 18 br/mi n (07/21/20 2:38 AM) Temperature [96.8-100.4 DegF] 98.1 DegF (07/21/20 2:38 AM) Mode of Delivery (Oxygen) Room air (07/21/20 2:38 AM) Blood pressure sites Arm, right (07/21/20 2:38 AM) Temperature Route Oral (07/21/20 2:38 AM) Dry Weight 107.3 kg (07/21/20 2:23 AM) Weight Obtained Via Standing scale (07/21/20 2:23 AM)
--- OUTSIDE RECORDS SUMMARY | 2022-09-30 10:01 | XMS_ITS | Continuity of Care Document ---
Author Name Unknown Organization [facility] Address [address] [place] [address]- Care Team Providers Care Sugar Cane Farm Manager Name Role Phone Thania Mckenzie Primary Care Physician [phone] [place] [facility] [place](s[place] 07/05/20 - 09/01/[address] [address]- Attending Physician: Lindsey Walker MD Admitting Physician: Lindsey Walker MD Allergies, Adverse Reactions, Alerts Substance Reaction Severity Status ibuprofen Active amoxicillin Active penicillin Active traMADol Active Medications acetaminophen 325 mg oral tablet 650 mg, By Mouth, Every 4 hours, PRN, (1-3), may give 325mg per patient preference and re-dose [id number] within 4 hours, if needed. Patient should [...] 0 Refills, Maintenance, 07/30/20 6:52:00 EST, Tablet, [facility] #[id number], Partial fill upon patient request if [...]
--- OUTSIDE RECORDS SUMMARY | 2022-09-30 10:01 | XMS_ITS | Continuity of Care Document ---
Author Name Unknown Organization [facility] Address Adult Weight Managem ent [address] [place] [address]- Care Team Providers Care Career Placement Services Counselor Name Role Phone Thania Mckenzie Primary Care Physician Encounter [facility] Date(s): 08/06/20 - 09/05/20 [facility] Adult Weight Management [address] [place] [address]- Allergies, Adverse Reactions, Alerts Substance Reaction Severity Status ibuprofen Active amoxicillin Active penicillin Active traMADol Active Medications acetaminophen 325 mg oral tablet 650 mg, By Mouth, Every 4 hours, PRN, (1-3), may give 325mg per patient preference and re-dose [id number] within 4 hours, if needed. Patient should [...] 0 Refills, Maintenance, 07/30/20 6:52:00 EST, Capsule, [facility]/pharmacy #[id number], Partial fill upon patient request if the [...] 0 Refills, Maintenance, 07/30/20 6:52:00 EST, Tablet, [facility]/pharmacy #[id number], Partial fill upon patient request if the [...]
--- OUTSIDE RECORDS SUMMARY | 2022-09-30 10:01 | XMS_ITS | Continuity of Care Document ---
Author Name Unknown Organization [facility] Address [address] [place] [address]- Care Team Providers Care Pulverizer Feeder Name Role Phone Thania Mckenzie Primary Care Physician [phone] [place] [facility] [place]s): 08/20/20 - 09/19/[address] [address]- Allergies, Adverse Reactions, Alerts Substance Reaction Severity Status ibuprofen Active amoxicillin Active penicillin Active traMADol Active Medications acetaminophen 325 mg oral tablet 650 mg, By Mouth, Every 4 hours, PRN, (1-3), may give 325mg per patient preference and re-dose [id number] within 4 hours, if needed. Patient should [...] 0 Refills, Maintenance, 07/30/20 6:52:00 EST, Tablet, [facility]/pharmacy #[id number], Partial fill upon patient request if the [...]
[2022-09-30 10:15] VITALS: BP 123/82; PULSE 84; RESP 18; TEMP 36.7; O2SAT 96; BMI 30.9
== END 2022-09-30 10:44 | disposition home or self-care (01) ==
PROVIDERS: Emergency Provider Emergency Medicine
DX: K04.7 Periapical abscess without sinus (principal); K08.89 Other specified disorders of teeth and supporting structures; F17.210 Nicotine dependence, cigarettes, uncomplicated; F12.90 Cannabis use, unspecified, uncomplicated
CPT/HCPCS: 99282; 99283

== ENCOUNTER 2023-04-28 11:04 | Outpatient (AMB) | payer OTHER, SELFPAY ==
--- NOTE | 2023-04-28 11:22 | A.OFFVIS_ITS ---
Intake Vital Signs 04/28/23 11:23 Height 5 ft 4 in Weight 237 lb BMI 40.7 BP 124/72 Intake Visit Reasons: consult Intake Note: 3 hcg test and 2 were positive Teradata Solution Architect Required: No Allergies amoxicillin [Amoxicillin] Allergy (Mild, Verified 04/28/23 11:30) NAUSEA & VOMITING, anaphylaxis ibuprofen [From Motrin] Allergy (Mild, Verified 04/28/23 11:30) SHORTNESS OF BREATH naproxen [From NAPROSYN] Allergy (Unknown, Verified 04/28/23 11:30) HIVES, shortness of breath penicillin V Allergy (Unknown, Verified 04/28/23 11:30) anaphylaxis Penicillins [PCN] Allergy (Unknown, Verified 04/28/23 11:30) SHORTNESS OF BREATH/N/V tramadol [TRAMADOL] Allergy (Unknown, Verified 04/28/23 11:30) SHORTNESS OF BREATH Medication List - Last Reconciled 04/28/23 by Sunshine Sheridan CNM clonazepam 1 mg PO TID PRN methadone 10 mg PO DAILY ondansetron 4 mg PO Q6H PRN Is last menstrual period known: Yes Last menstrual period: 02/07/23 Post menopausal: No Patient : Yes HPI consult HPI Details Patient is here for consult visit. She has a history of irregular periods she had a baby in 2020 and she also had a baby in 2015 which she says this CNM helped her deliver. She is on methadone 130 mg from [facility] in [place] and says she has been on this dose for many years she gets take home packs of 2 weeks at a time. She is also on clonazepam that she is weaning slowly off of with recommendations and discussion per her providers for her other meds she already weaned off Adderall and Ambien fairly quickly at the discovery of the in March. She was not contraceptive thing but she was not trying to get either and was open to it. She had what she believes were normal pregnancies though the labors were long she delivered the 1st 1 here at [facility] in the 2nd 1 at [facility]. She also smokes cigarettes. She says she has been doing okay weaning slowly off the clonazepam but sometime she still needs to take it sometimes because of her anxiety but sometimes she it is just the half a pill or a quarter pill. She said she was on 4 pills a day before. She is having some nausea but nothing she can not handle she just waits a little while before taking her methadone in the morning. [facility] Medical History Depression Anxiety Cigarette nicotine dependence Marijuana abuse PTSD (post-traumatic stress disorder) Methadone maintenance therapy patient Surgical History No history of previous surgery Family History Maternal Grandfather HTN (hypertension) Mother Anxiety Father Anxiety Social History (Updated 04/28/23 @ 11:32 by MAURICIO Flores) Alcohol intake: never Patient Tobacco Use Status: Current everyday Tobacco user Cigarettes Per Day: 5 Use of substances other than those prescribed or required for medical reasons: No Patient : Yes Sexual orientation: Straight/Heterosexual Gender identity: Female Female Reproductive History Menstrual Age of Menarche: 9 Duration of menses: 6-7 days Date of last menstrual period: 02/07/23 control method: none Total pregnancies: 6 Full term: 2 Number of Living Children: 2 Ab induced: 2 Ab spontaneous: 1 Date of last pap smear: 02/21/20 (negative) Physical Exam Vital Signs: Last Vital Signs BP 124/72 04/28/23 11:23 BMI result Body Mass Index 40.7 Const Other: Obese abdomen noted attempted to auscultate heart but not successful. Nutritional Appearance: obese Results AMB Test Urine AMB Test Urine Positive Last Edit by MAURICIO Flores on 04/28/23 11:47 Results Reviewed Results Reviewed: test is positive per MA. Assessment & Plan Assessment & Plan (1) Positive urine test: Comment: History of irregular menses but LMP 02/07/2023 by this would be 11 and 3 sevens with an ALPHONSE of 11/15/2023. Dating ultrasound pending but at has been advised she needs to seek all of her care at [facility] , [facility], from the start. Code(s): Z32.01 - Encounter for test, result positive (2) Cigarette nicotine dependence: Code(s): F17.210 - Nicotine dependence, cigarettes, uncomplicated Qualifiers: Substance use status: uncomplicated Qualified Code(s): F17.210 - Nicotine dependence, cigarettes, uncomplicated (3) Methadone maintenance therapy patient: Code(s): F11.20 - Opioid dependence, uncomplicated Plan Reviewed her history with her. We are no longer able to provide comprehensive care here that would provide for necessary evaluations in high risk pregnancies so I recommend that she start from the very beginning at [facility] where she had the end of her care the last time. She lives in [place] and she is accustomed to going to [place] for her other medical needs is cyst that she has also used to coming to [place]. Since I was not able to hear at heart tone I am ordering a dating ultrasound to establish ALPHONSE but I am also giving her list of practices with phone numbers at [facility] and I actually recommend that she call [facility] where she was seen before and establish care there as soon as possible so that she can initiate care early in get her nuchal translucency and other testing is needed. In the meantime I am ordering a dating ultrasound here but she need not wait for that in order to call to make her appointments she and I will have a quick visit after the dating ultrasound just to let her know about the dates I am also going to have her sign a form today at the front end manager so that dates of that ultrasound can be sent to [facility] to facilitate their care of her she has already started vitamins that she bought herself. And she feels she is doing well and is happy about the . Orders: Orders US OB <= 14 weeks fetus Today Z32.01 - Encounter for test, result positive AMB HCG Urine Test Today Z32.01 - Encounter for test, result positive Coding Level of Care Code Est Pt Level 3 (11858) Diagnoses Positive urine test Z32.01 Cigarette nicotine dependence without complication F17.210 Substance use status: uncomplicated Methadone maintenance therapy patient F11.20
[2023-04-28 11:23] VITALS: BP 124/72; BMI 40.7
== END 2023-04-28 12:17 | disposition home or self-care (01) ==
PROVIDERS: Visit Provider Advanced Practice Midwife
DX: Z32.01 Encounter for pregnancy test, result positive (principal); F17.210 Nicotine dependence, cigarettes, uncomplicated; F11.20 Opioid dependence, uncomplicated
CPT/HCPCS: 99213

== ENCOUNTER → 2023-04-28 11:04 | Outpatient (BNVA) | payer OTHER, SELFPAY | PROVIDERS: Visit Provider Advanced Practice Midwife | DX: Z32.01 Encounter for pregnancy test, result positive (principal); F11.20 Opioid dependence, uncomplicated; F17.210 Nicotine dependence, cigarettes, uncomplicated | CPT/HCPCS: 81025; 99212 ==

== ENCOUNTER 2023-05-11 12:45 | Outpatient (REF) | payer OTHER, SELFPAY ==
--- NOTE | ~2023-05-11 | US_ITS ---
EXAMINATION: US OBSTETRICAL ULTRASOUND CLINICAL INFORMATION: Dating, unknown LMP COMPARISON: None available. LMP: Unknown. Gestational age by maternal dates is unknown. Estimated date of delivery by maternal dates is unknown. TECHNIQUE: Real-time ultrasound of the gravid uterus. Permanent documented images obtained. FINDINGS: There is a single intrauterine gestational sac with embryo/fetus, and cardiac activity. No yolk sac identified. There is no significant subchorionic hemorrhage or hematoma. HR: 156 beats per minute. CRL (crown rump length): 4.6 cm (11 weeks, 3 days +/- 4 days). ALPHONSE (estimated date of delivery): 11/27/2023 +/- 4 days. MATERNAL ADNEXA: The right maternal ovary measures 2.9 x 0.9 x 1.7 cm. The left maternal ovary measures 2.0 x 2.2 x 1.7 cm. There is no significant maternal adnexal mass. No maternal pelvic ascites. US/US OB <= 14 weeks fetus IMPRESSION: 1. Single intrauterine gestation with ultrasound gestational age of 11 weeks 3 days +/- 4 days. 2. Estimated date of delivery is 11/27/2023 +/- 4 days. 3. No maternal adnexal mass or pelvic ascites.
== END 2023-05-11 12:46 | disposition home or self-care (01) ==
LOC: HO.HMGCX 12:45
PROVIDERS: Visit Provider Advanced Practice Midwife
DX: Z34.91 Encounter for supervision of normal pregnancy, unspecified, first trimester (principal); Z3A.11 11 weeks gestation of pregnancy
CPT/HCPCS: 76801